=== PATIENT | male | born 1970 | race Caucasian/White ===

== ENCOUNTER → 2018-11-10 | Outpatient (CLI) | payer BC ==
--- NOTE | 2018-11-10 14:09 | RAD ---
EXAM: Right inguinal sonogram. HISTORY: Inguinal hernia. TECHNIQUE: Tello scale and color Doppler sonographic imaging of the right inguinal region was performed. COMPARISON: None. FINDINGS: There is a right inguinal hernia which changes between resting and Valsalva maneuvers and appears to contain fat. There is no peristalsis within the hernia sac to suggest herniated bowel. The hernia defect measures approximately 1.2 cm. This does not extend into the right hemiscrotum. The testes are normal in size and demonstrate normal symmetric blood flow. There is no hydrocele or varicocele. IMPRESSION: Suspected small fat-containing right inguinal hernia. This changes between resting and Valsalva maneuvers. No convincing herniated bowel is seen. Electronically signed by: Kim Posada MD (11/10/2018 2:05 PM) [id number]
== END | disposition home or self-care (01) ==
LOC: RAD 12:53
PROVIDERS: ATTEND Family Medicine
DX: R10.31 Right lower quadrant pain (principal)
CPT/HCPCS: 76881